=== PATIENT | male | born 1955 | race Caucasian/White ===

== ENCOUNTER 2018-04-29 14:30 | Emergency (ER) | payer MEDICARE ==
[2018-04-29] MEDS ORDERED: CLONIDINE HCL 0.1 MG TABLET PO ONE ×2 (15:24→16:24)
[2018-04-29] MEDS ORDERED: KETOROLAC TROMETHAMINE 60 MG/2 ML SDV IM ONE (15:24)
--- NOTE | 2018-04-29 15:27 | ER Document Report ---
ED Medical Screen (RME) - General Chief Complaint: Toothache Stated Complaint: TOOTH PAIN Time Seen by Provider: 04/29/18 15:20 Mode of Arrival: Ambulatory Notes: 63-year-old's male with no past medical history presents emergency department with complaints of dental pain that started yesterday. Patient complains of pain to tooth #16. Denies any fever or chills. Vital signs are remarkable for patient being hypertensive. Patient denies a history of hypertension. He does not know for how long his blood pressure is been elevated. He denies any headache, vision changes just, numbness, tingling, weakness, chest pain, abdominal pain. [facility] He states that he is not on any medications. I have greeted and performed a rapid initial assessment of this patient. A comprehensive ED assessment and evaluation of the patient, analysis of test results and completion of the medical decision making process will be conducted by additional ED providers. PHYSICAL EXAMINATION: GENERAL: Well-appearing, well-nourished and in no acute distress. HEAD: Atraumatic, normocephalic. EYES: Pupils equal round extraocular movements intact, conjunctiva are normal. ENT: Nares patent. Tooth #16 pain. NECK: Normal range of motion LUNGS: No respiratory distress Musculoskeletal: Normal range of motion NEUROLOGICAL: Normal speech, normal gait. PSYCH: Normal mood, normal affect. SKIN: Warm, Dry, normal turgor, no rashes or lesions noted. TRAVEL OUTSIDE OF THE [place] IN LAST 30 DAYS: No - Related Data Allergies/Adverse Reactions: No Known Allergies Allergy (Verified 04/29/18 14:31) Physical Exam - Vital signs Vitals: Temp Pulse Resp BP Pulse Ox 98.4 F 104 H 18 188/113 H 98 04/29/18 14:35 04/29/18 14:35 04/29/18 14:35 04/29/18 14:35 04/29/18 14:35 Course - Vital Signs Vital signs: Temp Pulse Resp BP Pulse Ox 98.4 F 104 H 18 188/113 H 98 04/29/18 14:35 04/29/18 14:35 04/29/18 14:35 04/29/18 14:35 04/29/18 14:35
[2018-04-29 15:47] LABS: ABSOLUTE BASOPHILS # (AUTO) 0.1 10^3/uL (0.0-0.2); ABSOLUTE LYMPHOCYTES (AUTO) 1.3 10^3/uL (0.5-4.7); ABSOLUTE MONOCYTES (AUTO) 0.9 10^3/uL (0.1-1.4); ABSOLUTE NEUT (AUTO) 9.6 10^3/uL (1.7-8.2); BASOPHILS % (AUTO) 0.5 % (0-2); EOSINOPHILS % (AUTO) 0.3 % (0-6); HEMATOCRIT 50.8 % (37.9-51.0); HEMOGLOBIN 17.7 g/dL (13.5-17.0); LYMPHOCYTES % (AUTO) 10.8 % (13-45); MEAN CORPUSCULAR HEMOGLOBIN 32.7 pg (27.0-33.4); MEAN CORPUSCULAR HGB CONC 34.7 g/dL (32.0-36.0); MEAN CORPUSCULAR VOLUME 94 fl (80-97); MONOCYTES % (AUTO) 7.8 % (3-13); PLATELET COUNT 269 10^3/uL (150-450); RED CELL DISTRIBUTION WIDTH 13.7 % (11.5-14.0); SEGMENTED NEUTROPHILS % (AUTO) 80.6 % (42-78); TOTAL CELLS COUNTED % (AUTO) 100 %; WHITE BLOOD COUNT 11.9 10^3/uL (4.0-10.5)
[2018-04-29] MEDS ORDERED: KETOROLAC TROMETHAMINE INJ/PF 30 MG/1 ML SDV ONE (15:47)
[2018-04-29] MEDS ORDERED: KETOROLAC TROMETHAMINE INJ/PF 30 MG/1 ML SDV IV ONE (15:48)
[2018-04-29 16:05] LABS: ALANINE AMINOTRANSFERASE 17 U/L (21-72); ALBUMIN 4.4 g/dL (3.5-5.0); ALKALINE PHOSPHATASE 64 U/L (38-126); ANION GAP 10 (5-19); ASPARTATE AMINO TRANSFERASE 23 U/L (17-59); BILIRUBIN,DIRECT 0.4 mg/dL (0.0-0.4); BILIRUBIN,TOTAL 0.8 mg/dL (0.2-1.3); BLOOD UREA NITROGEN 10 mg/dL (7-20); CALCIUM 9.4 mg/dL (8.4-10.2); CARBON DIOXIDE 25 mmol/L (22-30); CHLORIDE 105 mmol/L (98-107); GLUCOSE 103 mg/dL (75-110); POTASSIUM 4.5 mmol/L (3.6-5.0); SODIUM 140.2 mmol/L (137-145); TOTAL PROTEIN 7.5 g/dL (6.3-8.2)
[2018-04-29] MEDS ORDERED: PENICILLIN V POTASSIUM 500 MG TABLET PO ONE (18:12)
[2018-04-29] MEDS ORDERED: IBUPROFEN 600 MG TABLET PO ONE (18:13)
--- NOTE | 2018-04-29 18:18 | ER Document Report ---
ED General - General Chief Complaint: Toothache Stated Complaint: TOOTH PAIN Time Seen by Provider: 04/29/18 15:20 Mode of Arrival: Ambulatory Notes: Patient is a 63-year-old male presents to the emergency department with left upper tooth pain. States it started last evening. States initially he thought he could wait until Tuesday to follow-up with his dentist but states the pain got to be unbearable which is why he presents to the emergency room. Patient denies taking any [id number] pain medication for his generalized tooth pain. Patient denies any fever. Patient states he has been to a dentist within the last 10 months. States he is also [facility] primary care provider routine checkup within the last 4 months. Past medical history: None Medications: None Allergies: None TRAVEL OUTSIDE OF THE [place] IN LAST 30 DAYS: No - Related Data Allergies/Adverse Reactions: No Known Allergies Allergy (Verified 04/29/18 14:31) Past Medical History - General Information source: Patient - Social History Smoking Status: Never Smoker Family History: Reviewed & Not Pertinent Patient has suicidal ideation: No Patient has homicidal ideation: No Renal/ Medical History: Denies: Hx Peritoneal Dialysis Review of Systems - Review of Systems Constitutional: No symptoms reported EENT: See HPI Cardiovascular: No symptoms reported Respiratory: No symptoms reported Gastrointestinal: No symptoms reported Genitourinary: No symptoms reported Male Genitourinary: No symptoms reported Musculoskeletal: No symptoms reported Skin: No symptoms reported Hematologic/Lymphatic: No symptoms reported Neurological/Psychological: No symptoms reported Physical Exam - Vital signs Vitals: Temp Pulse Resp BP Pulse Ox 98.4 F 104 H 18 188/113 H 98 04/29/18 14:35 04/29/18 14:35 04/29/18 14:35 04/29/18 14:35 04/29/18 14:35 - Notes Notes: GENERAL: Alert, interacts well. No acute distress. HEAD: Normocephalic, atraumatic. EYES: Pupils equal, round, and reactive to light. Extraocular movements intact. ENT: Oral mucosa moist, tongue midline. Very poor dentition noted. Multiple teeth extracted. Multiple obvious dental caries. Patient's tooth in question is #15. It is obviously loose and decayed, surrounding gum has erythema surrounding to space but no areas of fluctuance or induration noted. No Mariano angina noted. NECK: Full range of motion. Supple. Trachea midline. LUNGS: Clear to auscultation bilaterally, no wheezes, rales, or rhonchi. No respiratory distress. HEART: Regular rate and rhythm. No murmur ABDOMEN: Soft, non-tender. Non-distended. Bowel sounds present in all 4 quadrants. EXTREMITIES: Moves all 4 extremities spontaneously. No edema, normal radial and dorsalis pedis pulses bilaterally. No cyanosis. BACK: no cervical, thoracic, lumbar midline tenderness. No saddle anesthesia, normal distal neurovascular exam. NEUROLOGICAL: Alert and oriented x3. Normal speech. cranial nerves II through XII grossly intact PSYCH: Normal affect, normal mood. SKIN: Warm, dry, normal turgor. No rashes or lesions noted. Course - Re-evaluation Re-evalutation: 04/29/18 18:14 Patient was noted to be hypertensive upon arrival to the emergency department. Patient's apparently discussed with the [facility] provider that he has not gone to her primary care provider in multiple years and was unaware of his hypertension. [facility] provider ordered basic labs to rule out kidney damage or failure. Patient tells me he was to [facility] about 4 months ago for routine physical and evaluation, states everything was normal at that time and no one told him that he had high blood pressure. Patient's blood pressure has since Come down in the emergency department. Discussed following up at the [facility] and his primary care for continued blood pressure monitoring and potential medication administration. Patient continues to deny chest pain, shortness of breath, blurred vision, headache, dizziness, any other complaints besides the left upper tooth pain. Patient's labs show no signs of kidney damage or failure. Discussed use of antibiotics and [id number] pain medications for generalized tooth pain. Discussed following up with dentist at his earlier convenience. Patient stable for discharge. - Vital Signs Vital signs: Temp Pulse Resp BP Pulse Ox 98.4 F 104 H 18 181/104 H 98 04/29/18 14:35 04/29/18 14:35 04/29/18 14:35 04/29/18 16:23 04/29/18 14:35 - Laboratory Result Diagrams: 04/29/18 15:37 04/29/18 15:37 Laboratory results interpreted by me: 04/29/18 04/29/18 15:37 15:37 WBC 11.9 H Hgb 17.7 H Seg Neutrophils % 80.6 H Lymphocytes % 10.8 L Absolute Neutrophils 9.6 H ALT 17 L Discharge - Discharge Clinical Impression: Toothache, Dental caries Hypertension Qualifiers: Hypertension type: unspecified Qualified Code(s): I10 - Essential (primary) hypertension Condition: Stable Disposition: HOME, SELF-CARE Instructions: [facility], Penicillin V K ([facility]), High Blood Pressure ([facility]) Additional Instructions: As we discussed you have been seen and treated in the emergency apartment for a toothache. Inevitably it is noted that you have high blood pressure. You must follow-up with your primary care provider in the next 24-48 hours for continued care of your blood pressure. Please immediately return to the emergency room should you have any other concerning symptoms. Prescriptions: Penicillin V Potassium [Penicillin Vk 500 mg Tablet] 500 mg PO BID #20 tablet Forms: Elevated Blood Pressure
[2018-04-29 18:22] VITALS: BP 148/83
== END 2018-04-29 18:29 | disposition home or self-care (01) ==
LOC: ER 14:30
DX: K02.9 Dental caries, unspecified (principal); I10 Essential (primary) hypertension
CPT/HCPCS: 99283; 96374; 36415; 85025; 80053; A9270 ×3; J1885